=== PATIENT | female | born 1965 | race Caucasian/White ===

== ENCOUNTER 2016-11-28 17:32 | Emergency (ER) | payer OTHER ==
[~2016-11-28] VITALS: Ht 160 cm; Wt 80.5 kg
[~2016-11-28 17:32] MED LIST: ASPIR-LOW81 MG PO; CELEXA40 MG PO; CRESTOR20 MG PO; DULOXETINE HCL60 MG PO; EFFEXOR25 MG PO; FLEXERIL5 MG PO; GLYBURIDE5 MG PO; LISINOPRIL5 MG PO; METFORMIN; METFORMIN HCL500 MG PO; NAPROSYN500 MG PO; OMEPRAZOLE20 M2 PO; PRAVASTATIN SOD80 MG PO; RISPERIDONE3 MG PO; TRAZODONE HCL150 MG PO; TRICOR; TRILEPTAL300 MG PO; VENLAFAXINE H37.5 M3 PO; VICODIN 5-3001 EACH PO; VITAMIN B-121000 MCG PO; XANAX0.25 MG PO
[2016-11-28 19:49] LABS: AMPHETAMINE NEGATIVE (500 ng/mL); BARBITURATES NEGATIVE (200 ng/mL); BENZODIAZEPINES NEGATIVE (150 ng/mL); COCAINE NEGATIVE (150 ng/mL); INTERNAL CONTROLS VALID? YES; METHADONE NEGATIVE (200 ng/mL); METHAMPHETAMINE NEGATIVE (500 ng/mL); OPIATES (MORPHINE) NEGATIVE (100 ng/mL); OXYCODONE NEGATIVE (100 ng/mL); PHENCYCLIDINE NEGATIVE (25 ng/mL); PROPOXYPHENE NEGATIVE (300 ng/mL); THC CANNABINOIDS NEGATIVE (50 ng/mL); TRICYCLIC ANTIDEPRESSANTS NEGATIVE (300 ng/mL)
[2016-11-28 19:51] LABS: BASOPHIL COUNT 0.1 K/uL (0-0.1); EOSINOPHIL (%) 0.5 % (0-5); HEMATOCRIT 43.6 % (36.0-46.0); IMMATURE GRANULOCYTE (%) 0.1 % (0.0-0.7); INSTRUMENT ABS NEUTROPHIL CT 5.6 K/uL; LYMPHOCYTE COUNT 2.3 K/uL (1.0-2.8); MCH 29.9 PG (29.0-34.0); MCHC 34.4 G/DL (30.0-36.0); MCV 86.9 FL (83-99); MEAN PLAT.VOLUME 10.3 uM^3 (9.5-12.4); MONOCYTE (%) 7.2 % (3-12); MONOCYTE COUNT 0.6 K/uL (0-0.8); NEUTROPHIL (%) 65.2 % (45-76); NEUTROPHIL COUNT 5.6 K/uL (1.8-6.4); PLATELET COUNT 328 K/uL (156-360); RBC DIS.WIDTH-CV 11.6 % (11.8-14.6); RBC DIS.WIDTH-SD 36.9 % (39-53); RED BLOOD COUNT 5.02 M/uL (3.80-5.20); WHITE BLOOD COUNT 8.6 K/uL (4.1-10.2)
[2016-11-28 20:02] LABS: CHLORIDE 102 mEq/L (99-109); POTASSIUM 4.2 mEq/L (3.7-5.4); SODIUM 139 mEq/L (136-147)
[2016-11-28 20:05] LABS: GLUCOSE 243 mg/dL (70-99)
[2016-11-28 20:06] LABS: ANION GAP 13 MEQ/L (2-14); TOTAL BILIRUBIN 0.6 mg/dL (0.0-1.0)
[2016-11-28 20:07] LABS: SERUM ETHYL ALCOHOL < 10 mg/dL
[2016-11-28 20:08] LABS: ALKALINE PHOSPHATASE 93 IU/L (3-129); GFR ESTIMATE (CALCULATED) > 59 mL/min/
[2016-11-28 20:09] LABS: UREA NITROGEN (BUN) 14 mg/dL (9-23)
[2016-11-28 21:40] VITALS: BP 146/84
== END 2016-11-28 21:53 | disposition home or self-care (01) ==
LOC: EME 17:32
PROVIDERS: Emergency Medicine
DX: F31.32 Bipolar disorder, current episode depressed, moderate (principal); F41.9 Anxiety disorder, unspecified; F60.3 Borderline personality disorder; G47.00 Insomnia, unspecified; E11.9 Type 2 diabetes mellitus without complications; E78.5 Hyperlipidemia, unspecified; I10 Essential (primary) hypertension; Z79.84 Long term (current) use of oral hypoglycemic drugs
CPT/HCPCS: 80053; 84443; 85025; 90839; 99281; 99284; G0480

== ENCOUNTER 2017-03-23 17:06 | Inpatient (IN) | payer OTHER ==
[~2017-03-23] VITALS: Ht 160 cm; Wt 80.9 kg
[2017-03-23 18:41] LABS: BASOPHIL COUNT 0.1 K/uL (0-0.1); EOSINOPHIL (%) 1.2 % (0-5); EOSINOPHIL COUNT 0.1 K/uL (0-0.3); HEMATOCRIT 42.6 % (36.0-46.0); IMMATURE GRANULOCYTE (%) 0.2 % (0.0-0.7); INSTRUMENT ABS NEUTROPHIL CT 5.3 K/uL; LYMPHOCYTE COUNT 2.3 K/uL (1.0-2.8); MCH 30.1 PG (29.0-34.0); MCHC 34.7 G/DL (30.0-36.0); MCV 86.8 FL (83-99); MEAN PLAT.VOLUME 10.2 uM^3 (9.5-12.4); MONOCYTE (%) 6.9 % (3-12); MONOCYTE COUNT 0.6 K/uL (0-0.8); NEUTROPHIL COUNT 5.3 K/uL (1.8-6.4); PLATELET COUNT 315 K/uL (156-360); RBC DIS.WIDTH-CV 11.7 % (11.8-14.6); RBC DIS.WIDTH-SD 37.2 % (39-53); RED BLOOD COUNT 4.91 M/uL (3.80-5.20); WHITE BLOOD COUNT 8.4 K/uL (4.1-10.2)
[2017-03-23 18:55] LABS: CHLORIDE 102 mEq/L (99-109); SODIUM 137 mEq/L (136-147)
[2017-03-23 18:56] LABS: GLUCOSE 138 mg/dL (70-99)
[2017-03-23 18:58] LABS: ANION GAP 12 MEQ/L (2-14)
[2017-03-23 18:59] LABS: SERUM ETHYL ALCOHOL < 10 mg/dL
[2017-03-23 19:00] LABS: GFR ESTIMATE (CALCULATED) > 59 mL/min/
[2017-03-23 19:01] LABS: UREA NITROGEN (BUN) 15 mg/dL (9-23)
[2017-03-23 19:09] LABS: QUANTITATIVE HCG < 4.0 MIU/ML
[2017-03-23 22:42] VITALS: BP 201/92
[2017-03-23 22:48] VITALS: BP 170/90
[2017-03-24 07:27] VITALS: BP 172/90
[2017-03-24 15:41] VITALS: BP 149/79
[2017-03-25 07:31] VITALS: BP 155/82
[2017-03-25 15:21] VITALS: BP 148/75
[2017-03-26 07:25] VITALS: BP 149/77
[2017-03-26 15:23] VITALS: BP 147/78
[2017-03-27 07:32] VITALS: BP 162/82
[2017-03-27 15:36] VITALS: BP 166/90
[2017-03-27 19:33] VITALS: BP 167/87
[2017-03-28 07:40] VITALS: BP 131/76
[2017-03-28] MEDS ORDERED: SEROQUEL100 MG PO (09:55)
== END 2017-03-28 11:14 | disposition home or self-care (01) | DRG 885 ==
LOC: EME 17:06 → 1WEST 19:37 → EDOF 19:37 → 1WEST 22:33
PROVIDERS: Emergency Medicine
DX: F20.9 Schizophrenia, unspecified (principal); R45.851 Suicidal ideations; F32.9 Major depressive disorder, single episode, unspecified; Z91.14 Patient's other noncompliance with medication regimen; Z91.5 Personal history of self-harm; E11.9 Type 2 diabetes mellitus without complications; I10 Essential (primary) hypertension; G43.909 Migraine, unspecified, not intractable, without status migrainosus; E78.5 Hyperlipidemia, unspecified
CPT/HCPCS: 80048; 84702; 85025; 90839; 95819; 97150 GO; 97165 GO; 99281; 99284; G0480

== ENCOUNTER 2017-07-26 14:58 | Emergency (ER) | payer OTHER ==
[~2017-07-26] VITALS: Ht 160 cm; Wt 59.2 kg
[~2017-07-26 14:58] MED LIST changes: +SEROQUEL100 MG PO
[2017-07-26 17:00] VITALS: BP 185/109
== END 2017-07-26 17:00 | disposition home or self-care (01) ==
LOC: EME 14:58
DX: F31.32 Bipolar disorder, current episode depressed, moderate (principal); F60.3 Borderline personality disorder; Z91.5 Personal history of self-harm; E78.5 Hyperlipidemia, unspecified; E11.9 Type 2 diabetes mellitus without complications; Z79.84 Long term (current) use of oral hypoglycemic drugs
CPT/HCPCS: 90837; 99281; 99285